=== PATIENT | male | born 1935 | race Hispanic/Latino ===

== ENCOUNTER 2017-05-03 07:56 | Emergency (ER) | payer MEDICARE, BC ==
[2017-05-03] MEDS ORDERED: MECLIZINE HCL 25 MG TABLET PO ONE (08:46)
[2017-05-03] MEDS ORDERED: MECLIZINE HCL 25 MG TABLET ONE (08:51)
[2017-05-03 09:02] LABS: Hematocrit 42.8 % (42.0-52.0); Hemoglobin 14.6 gm/dL (13.5-18.0); Mean Cell Volume 95.5 fl (78-100); Mean Corpuscular Hemoglobin 32.6 pg (27-31); Mean Corpuscular Hgb Conc 34.1 g/dl (32-36); Mean Platelet Volume 9.7 fl (6.0-9.5); Neutrophil # 3.7 K/mm3 (1.3-6.0); Neutrophil % 73.5 % (42-75.0); Platelet Count 183 K/mm3 (150-450); Red Blood Count 4.48 M/mm3 (4.7-6.0); Red Cell Distribution Width 13.5 % (11.5-14.0); White Blood Count 5.1 K/mm3 (4.0-10.5)
[2017-05-03 09:20] LABS: ALT 22 U/L (19-67); AST 22 U/L (0-48); Alkaline Phosphatase * 72 U/L (50-170); Anion Gap 13.9 mmol/L (6.8-13.8); BUN/Creatinine Ratio 12.9 (9.0-21.6); Bilirubin, Total 0.5 mg/dL (0.0-1.1); Blood Urea Nitrogen 13 mg/dL (6-23); Ca. Corrected For Albumin 8.6 mg/dL (8.4-10.2); Calcium * 8.9 mg/dL (7.9-10.9); Carbon Dioxide 28.1 mmol/L (24-32.6); Chloride 103 mmol/L (97-106); Glucose * 123 mg/dL (70-110); Sodium 141 mmol/L (132-142); Total Protein 7.9 gm/dL (6.2-8.2)
[2017-05-03 09:21] LABS: Troponin I Less than 0.017 ng/ml (0.00-0.10)
[2017-05-03 09:27] LABS: Urine Bilirubin Negative (NEGATIVE); Urine Blood Negative /ul (NEGATIVE); Urine Ketone Negative (NEGATIVE); Urine Nitrite Negative (NEGATIVE); Urine Protein Negative (NEGATIVE); Urine Specific Gravity 1.015 SP.GR. (1.005-1.030); Urine Urobilinogen Normal (NORMAL)
[2017-05-03 09:31] LABS: Urine Appearance Clear; Urine Color Yellow
[2017-05-03 09:34] LABS: Urine Bacteria None Seen; Urine RBC None Seen /hpf (0-5); Urine WBC None Seen /hpf (0-5)
[2017-05-03 10:14] VITALS: BP 130/53
--- NOTE | 2017-05-03 10:24 | ERNOTE ---
Dizziness ER Record Date of Service: 05/03/17 Presenting Symptoms: vertigo Time Seen by Provider: 05/03/17 08:39 Source: patient Exam Limitations: no limitations Allergies/Adverse Reactions: Allergies Allergy/AdvReac Type Severity Reaction Status Date / Time No Known Allergies Allergy Unverified 05/03/17 08:27 Home Medications: HOME MEDICATIONS Aspirin [Aspirin Enteric Coated] 81 mg PO DAILY 05/03/17 [Last Taken Unknown] Meclizine HCl [Antivert] 25 mg PO QID PRN #30 tab 05/03/17 [Last Taken Unknown] Metoprolol Tartrate [Lopressor] 25 mg PO BID 05/03/17 [Last Taken Unknown] Simvastatin [Zocor] 40 mg PO HS 05/03/17 [Last Taken Unknown] - History of Present Illness Narrative: Patient presents to the ED for dizziness. This started this morning. He bent forward and had acute onset of spinning dizziness. This resolved after 10 minutes. This returned again this morning when he bent forward. Now Sx resolved. The second episode was the same, spinning. no N/T/W. No headache. No fever. No CP or SOB. he has chronic shoulder pain but this is not acute, he has had this for 20 years. No vomiting. Timing and Duration: sudden onset, gone now Severity: max: moderate Associated Symptoms: Absent: hearing loss, ringing/roaring in ear, vomiting, headache, weakness, numbness Sense of movement: Present: spinning Decreased ability to stand/walk:: Absent: unable to walk Modifying Factors - (Improves): Reports: other - goes away on its own Modifying Factors - (Worsens): Reports: changing position Prior Treament: Reports: other - has had vertigo once before.. Denies: recently seen Review of Systems - Review of Systems Constitutional: Absent: fever EYE: Absent: blurred vision, double vision ENT: Present: no symptoms reported Respiratory: Absent: shortness of breath Cardiology: Absent: chest pain Gastrointestinal/Abdominal: Absent: abdominal pain Musculoskeletal: Present: other - chronic shoulder pain Skin: Absent: rash Neurological: Absent: weakness, numbness, tingling - Patient's Past Medical History Patient History - Cardiac/Respiratory: Atrial Fibrillation, Hypertension, Hyperlipidemia Patient History - Cancer: No Hx of Cancer Patient History - Surgical Procedures: Appendectomy Patient History - Other: None - Social History Living Situations: home Abuse History: No History of abuse Psych History: No pertinent hx Alcohol Use: none Drug Use: none Physical Exam - Physical Exam General Appearance: Present: alert, no apparent distress Head Exam: Present: normal inspection, no evidence of injury Eye Exam: Normal inspection: bilateral, PERRL: bilateral Ears, Nose, Throat: Present: normal ENT inspection, normal pharynx. 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 Clinically BPV. Absent: facial droop, motor weakness Skin Exam: Present: normal color, warm/dry ED Progress - Results and Orders Patient's Lab Results:: I have reviewed the patient's lab results. - Vital Signs Patient's Vital Signs:: I have reviewed the patient's vital signs. Vital Signs: Vital Signs 05/03/17 05/03/17 05/03/17 08:18 09:18 09:47 Temperature 36.1 C L Pulse Rate 61 55 L 51 L Respiratory 12 12 12 Rate Blood Pressure 177/83 136/74 150/73 O2 Sat by Pulse 95 96 98 Oximetry - EKG EKG: NSR EKG read: Interp. by me EKG Comments: Sinus Bhupendra, rate 58. Incomplete RBBB. Non-specific, no clear evidence of STEMI. - CT/Ultrasound CT/Ultrasound Narrative: CT head negative for acute. - Progress/Reassessment Chief Complaint: Dizziness Progress Note-Subjective: 05/03/17 10:16 Sx resolved after Meclizine. Clinically BPV, with reporducible Sx with head movement. Nothing to suggest ACS, stroke, PE, aortic dissection or other life threat. He feels like going home. i disucssed warning signs and reasons to return as well as the need for close f/u. Departure Clinical Impression: Vertigo - Departure Disposition: Home self-care Condition: Stable Instructions: Vertigo, Guff-up-Kvan Additional Instructions: Rest. Fluids. Meclizine as directed. Follow-up with your doctor in 3 days for a re-check, you may need vestibulotherapy if your symptoms persist. Return here for numbness, tingling, weakness, chest pain, shortness of breath or if your condition worsens or changes in any way. Referrals: Radha Summers MD [Primary Care Provider] - Prescriptions: Meclizine HCl [Antivert] 25 mg PO QID PRN #30 tab PRN Reason: DIZZINESS
== END 2017-05-03 10:16 | disposition home or self-care (01) ==
LOC: ER 07:56
DX: R42 Dizziness and giddiness (principal); E78.5 Hyperlipidemia, unspecified; I48.91 Unspecified atrial fibrillation